=== PATIENT | male | born 2000 | race Caucasian/White ===

== ENCOUNTER 2021-02-05 16:44 | Emergency (ER) | payer MEDICAID ==
[~2021-02-05] VITALS: Ht 162.6 cm; Wt 63.5 kg
[2021-02-05 16:51] VITALS: BP 119/60
--- NOTE | 2021-02-05 16:54 | NUR ---
TENT1
[2021-02-05] MEDS ORDERED: PENI500T20 PO (17:07)
[2021-02-05] MEDS ORDERED: IBUP-2213 PO (17:07)
--- NOTE | 2021-02-05 17:48 | NUR ---
TAMMY NOVEL SAMPLE COLLECTED
--- NOTE | 2021-02-05 17:49 | NUR ---
Patient discharged with v/s stable. Written and verbal after care instructions ABOUT MEDIATIONS AND STREP THROAT given and explained. Patient alert, oriented and verbalized understanding of instructions. Ambulatory with steady gait. All questions addressed prior to discharge. ID band removed. Patient advised to follow up with PMD. Rx of IBUPROFEN AND PENICILLIN given. Patient educated on indication of medication including possible reaction and side effects. Opportunity to ask questions provided and answered.
== END 2021-02-05 17:49 | disposition home or self-care (01) ==
LOC: MED 16:44
DX: J02.0 Streptococcal pharyngitis (principal); Z20.822 Contact with and (suspected) exposure to COVID-19
CPT/HCPCS: 99283; U0003